=== PATIENT | female | born 1950 | race Caucasian/White ===

== ENCOUNTER 2019-01-02 12:26 | Emergency (ER) | payer MEDICARE, BC ==
[2019-01-02] MEDS ORDERED: Sodium Chloride 0.9% 10 ML Syringe FLUSH PRN (12:41)
[2019-01-02] MEDS ORDERED: Sodium Chloride 0.9% 1,000 ML IV ONE (12:41)
[2019-01-02] MEDS ORDERED: Ondansetron 4 MG/2 ML SDV IVPUSH ONE (12:55)
[2019-01-02] MEDS ORDERED: Ketorolac 30 MG/ML SDV IVPUSH ONE (12:55)
[2019-01-02] MEDS ORDERED: Acetaminophen/oxyCODONE 325-5 MG Tab PO ONE ×2 (13:07→13:14)
--- NOTE | 2019-01-02 13:07 | EDM.PDOC ---
ED HPI GENERAL MEDICAL PROBLEM - General Chief Complaint: Genitourinary Problem Stated Complaint: KIDNEY STONE?? Time Seen by Provider: 01/02/19 12:55 Source of Information: Reports: Patient History Limitations: Reports: No Limitations - History of Present Illness INITIAL COMMENTS - FREE TEXT/NARRATIVE: She is a 68-year-old female who presents to the emergency department this afternoon with a complaint of right lower abdominal pain and right flank pain. Symptoms began yesterday morning, and patient was seen at the [facility] by Sacha Vanegas. Lab work and urinalysis were performed. Both were found to be within normal limits. Patient also underwent ultrasound for evaluation and it was determined that she had right-sided kidney stones. The location and size of the calculi was 8 x 4 mm obstructing right ureteral stone with mild right hydronephrosis. Patient states that she was given tramadol for discomfort, however today she felt nauseous and abdominal pain became worse so she decided to present to the ER. Patient denies chest pain, shortness of breath, fever, bowel changes, blood in stool, or any trauma. Patient underwent bariatric surgery september 2018. Surgery said to have proceeded without complication and she' s had no residual. Patient is scheduled to follow up with Sacha Vanegas at [facility] next week. Onset: Gradual Onset Date: 01/01/19 Duration: Day(s): Location: Reports: Abdomen, Back Quality: Reports: Ache Severity: Mild Improves with: Reports: None Worsens with: Reports: None Context: Denies: Trauma Associated Symptoms: Reports: Nausea/Vomiting. Denies: Chest Pain, Fever/Chills , Shortness of Breath - Related Data Allergies Allergy/AdvReac Type Severity Reaction Status Date / Time hydrocodone Allergy Vomiting Verified 01/02/19 12:56 Sulfa (Sulfonamide Allergy Itching Verified 01/02/19 12:56 Antibiotics) ED ROS GENERAL - Review of Systems Review Of Systems: ROS reveals no pertinent complaints other than HPI. Constitutional: Reports: No Symptoms HEENT: Reports: No Symptoms Respiratory: Reports: No Symptoms Cardiovascular: Reports: No Symptoms Endocrine: Reports: No Symptoms GI/Abdominal: Reports: Abdominal Pain, Nausea. Denies: Vomiting : Reports: Flank Pain (Right side), Hematuria. Denies: Dysuria Musculoskeletal: Reports: No Symptoms Skin: Reports: No Symptoms Neurological: Reports: No Symptoms Psychiatric: Reports: No Symptoms Hematologic/Lymphatic: Reports: No Symptoms Immunologic: Reports: No Symptoms ED EXAM, GI/ABD - Physical Exam Exam: See Below General Appearance: Alert, WD/WN, No Apparent Distress Throat/Mouth: Normal Inspection, Normal Oropharynx, No Airway Compromise Head: Atraumatic, Normocephalic Neck: Normal Inspection Respiratory/Chest: No Respiratory Distress, Lungs Clear, Normal Breath Sounds, No Accessory Muscle Use, Chest Non-Tender Cardiovascular: Regular Rate, Rhythm, No Murmur GI/Abdominal Exam: Normal Bowel Sounds, Soft, No Organomegaly, No Distention, No Abnormal Bruit, No Mass, Tender (Right lower quadrant) Back Exam: CVA Tenderness (R). No: CVA Tenderness (L) Extremities: Normal Inspection, No Pedal Edema Neurological: Alert, Oriented, Normal Cognition Psychiatric: Normal Affect, Normal Mood Skin Exam: Warm, Dry, Intact, Normal Color, No Rash Lymphatic: No Adenopathy Course - Orders/Labs/Meds Orders: Active Orders 24 hr Category Date Time Status Peripheral IV Care [RC] . DIRECTED Care 01/02/19 12:41 Active Abdomen Pelvis wo Cont [CT] Stat Exams 01/02/19 12:55 Ordered Sodium Chloride 0.9% [Normal Saline] 1,000 ml Med 01/02/19 12:41 Active IV .BOLUS Sodium Chloride 0.9% [Saline Flush] Med 01/02/19 12:41 Active 10 ml FLUSH Q8HR PRN Peripheral IV Insertion Adult [OM.PC] Routine Oth 01/02/19 12:41 Ordered Medication Orders Sodium Chloride (Normal Saline) 1,000 mls @ 999 mls/hr IV .BOLUS ONE Stop: 01/02/19 13:41 Last Admin: 01/02/19 12:48 Dose: 999 mls/hr Sodium Chloride (Saline Flush) 10 ml FLUSH Q8HR PRN PRN Reason: keep vein open Last Admin: 01/02/19 12:58 Dose: 10 ml Meds: Medications Generic Name Dose Route Start Last Admin Trade Name Freq PRN Reason Stop Dose Admin Sodium Chloride 1,000 mls @ 999 mls/hr 01/02/19 12:41 01/02/19 12:48 Normal Saline IV 01/02/19 13:41 999 mls/hr .BOLUS ONE Administration Sodium Chloride 10 ml 01/02/19 12:41 01/02/19 12:58 Saline Flush FLUSH 10 ml Q8HR PRN Administration keep vein open Discontinued Medications Generic Name Dose Route Start Last Admin Trade Name Gaudencio PRN Reason Stop Dose Admin Ketorolac Tromethamine 30 mg 01/02/19 12:55 Toradol IVPUSH 01/02/19 12:56 ONETIME ONE Ondansetron HCl 4 mg 01/02/19 12:55 01/02/19 12:58 Zofran IVPUSH 01/02/19 12:56 4 mg ONETIME ONE Administration - Radiology Interpretation Free Text/Narrative:: Ultrasound of right lower quadrant performed at [facility] on 01/01/2019 shows an 8 x 4 mm obstructing right ureteral stone with mild right hydronephrosis. Appendix is not identified. - Re-Assessments/Exams Free Text/Narrative Re-Assessment/Exam: 01/02/19 13:10 Patient afebrile, vital signs stable, nontoxic appearing, pain mostly relieved. Ultrasound results from yesterday at [facility] noted. Lab work and urinalysis performed at [facility] within normal limits. Patient is currently on Keflex. Patient given 1 L normal saline IV, Zofran 4 mg, 30 mg Toradol, and 5 mg Percocet in the ER. Patient will be discharged with 4-5 mg Percocet tabs 4 when necessary pain control. Patient will follow-up with Sacha Vanegas on Friday at [facility] for recheck. 01/02/19 13:11 Departure - Departure Time of Disposition: 13:18 Disposition: Home, Self-Care 01 Condition: Good Clinical Impression: Kidney stone, Hematuria syndrome - Discharge Information Instructions: Kidney Stones, [id number], Pain Medicine Instructions, Easy-to- Read, Hematuria, Adult Referrals: Sacha Vanegas, [facility] [employer] [Primary Care Provider] - Additional Instructions: Follow-up with Sacha Vanegas on Friday or Friday. Return to emergency department sooner if symptoms continue or worsen. Drink plenty of fluids. Take pain medication as directed - My Orders Last 24 Hours: My Active Orders 01/02/19 12:41 Peripheral IV Care [RC] . DIRECTED Sodium Chloride 0.9% [Normal Saline] 1,000 ml IV .BOLUS Sodium Chloride 0.9% [Saline Flush] 10 ml FLUSH Q8HR PRN Peripheral IV Insertion Adult [OM.PC] Routine 01/02/19 12:55 Abdomen Pelvis wo Cont [CT] Stat - Assessment/Plan Last 24 Hours: My Active Orders 01/02/19 12:41 Peripheral IV Care [RC] . DIRECTED Sodium Chloride 0.9% [Normal Saline] 1,000 ml IV .BOLUS Sodium Chloride 0.9% [Saline Flush] 10 ml FLUSH Q8HR PRN Peripheral IV Insertion Adult [OM.PC] Routine 01/02/19 12:55 Abdomen Pelvis wo Cont [CT] Stat Assessment:: Renal calculi Plan: Follow-up at [facility]
== END 2019-01-02 14:00 | disposition home or self-care (01) ==
LOC: KA.ED 12:26
DX: N20.0 Calculus of kidney (principal); R31.9 Hematuria, unspecified; Z88.6 Allergy status to analgesic agent; Z88.2 Allergy status to sulfonamides
CPT/HCPCS: 96361; 96374; 96375; 99283; A9270; J1885; J2405; J7030

== ENCOUNTER 2024-07-06 07:05 | Day surgery (SDC) | payer BC, MEDICARE ==
[2024-07-06] MEDS ORDERED: Propofol 200 MG/20 ML SDV IV ONE (07:06)
[2024-07-06] MEDS: Sodium Chloride 0.9% 1,000 ML IV SCH (07:42)
[2024-07-06] MEDS: Sodium Chloride 0.9% 10 ML Syringe FLUSH PRN (07:42)
[2024-07-06] MEDS ORDERED: Propofol 200 MG/20 ML SDV ONE ×2 (07:54→08:44)
[2024-07-06] MEDS ORDERED: Midazolam 1 MG/ML 2 ML SDV ONE (07:54)
[2024-07-06] MEDS ORDERED: Lactated Ringers 1,000 ML ONE (08:44)
[2024-07-06 10:57] VITALS: BP 158/79; PULSE 58
== END 2024-07-06 11:30 | disposition home or self-care (01) ==
LOC: KA.SDS 07:05
PROVIDERS: ATTEND Family Medicine
DX: D12.5 Benign neoplasm of sigmoid colon (principal); D12.8 Benign neoplasm of rectum; K52.9 Noninfective gastroenteritis and colitis, unspecified; K57.30 Diverticulosis of large intestine without perforation or abscess without bleeding; E66.01 Morbid (severe) obesity due to excess calories; E11.9 Type 2 diabetes mellitus without complications; I10 Essential (primary) hypertension; Z86.0101 Personal history of adenomatous and serrated colon polyps; Z79.899 Other long term (current) drug therapy; Z88.2 Allergy status to sulfonamides; Z88.8 Allergy status to other drugs, medicaments and biological substances; Z68.34 Body mass index [BMI] 34.0-34.9, adult
CPT/HCPCS: 00811; 82947; 99100; J2250; J2704; J7030